=== PATIENT | female | born 1975 | race Caucasian/White ===

== ENCOUNTER → 2017-03-18 | Outpatient (CLI) | payer OTHER ==
[2014-01-19 11:32] VITALS: BP 119/83
[~2017-03-18] MED LIST: ADDERALL30 MG PO; WELLBUTRIN XL300 M1 PO
== END ==
LOC: RAD 14:47
DX: M25.571 Pain in right ankle and joints of right foot (principal)

== ENCOUNTER 2017-08-20 09:07 | Emergency (ER) | payer OTHER ==
[~2017-08-20] VITALS: Ht 175.3 cm; Wt 81.8 kg
[2017-08-20 10:10] LABS: HEMATOCRIT 41.7 % (37.0-47.0); HEMOGLOBIN 14.1 g/dL (12.5-16.0); LYMPH# 1.1 (1.50-4.00); MEAN CELL VOLUME 90 fl (78-100); MEAN CORPUSCULAR HEMOGLOBIN 30 pg (27-31); MEAN CORPUSCULAR HGB CONC 34 g/dL (33-37); MEAN PLATELET VOLUME 10.9 fl (7.4-10.4); MONO # 0.4 (0.20-0.80); NEU # 3.7 (1.40-6.50); PLATELET COUNT 211 K/mm3 (130-400); RED BLOOD COUNT 4.66 M/mm3 (4.10-5.30); RED CELL DISTRIBUTION WIDTH 12.7 % (11.5-14.5); WHITE BLOOD COUNT 5.3 K/mm3 (4.8-10.8)
[2017-08-20 10:25] LABS: PH-URINE 5.5 (5.0 - 8.0); URINE APPEARANCE HAZY; URINE COLOR YELLOW
[2017-08-20 10:26] LABS: URINE BILIRUBIN NEGATIVE (NEGATIVE); URINE BLOOD NEGATIVE (NEGATIVE); URINE GLUCOSE NEGATIVE (NEGATIVE); URINE KETONE NEGATIVE (NEGATIVE); URINE LEUKOCYTE ESTERASE NEGATIVE (NEGATIVE); URINE NITRATE NEGATIVE (NEGATIVE); URINE PROTEIN(semi-quant) NEGATIVE (NEGATIVE); URINE UROBILINOGEN NORMAL (NORMAL)
[2017-08-20 11:05] LABS: ERYTHROCYTE SEDIMENTATION RATE 2 mm/hr (0-20)
[2017-08-20] MEDS ORDERED: PREDNISONE20 M1 PO (11:42)
[2017-08-20 12:00] VITALS: BP 128/75
== END 2017-08-20 12:00 | disposition home or self-care (01) ==
LOC: ED 09:07
PROVIDERS: Family Medicine
DX: L50.9 Urticaria, unspecified (principal)

== ENCOUNTER → 2018-07-04 | Outpatient (CLI) | payer BC ==
[~2018-07-04] MED LIST changes: +PREDNISONE20 M1 PO
== END ==
LOC: CARDLAB 09:04 → CARDREHAB 15:49
DX: R00.2 Palpitations (principal)

== ENCOUNTER → 2018-08-07 | Outpatient (CLI) | payer BC | LOC: RAD 13:00 | DX: M25.571 Pain in right ankle and joints of right foot (principal); M79.671 Pain in right foot ==

== ENCOUNTER → 2019-11-13 | Outpatient (CLI) | payer BC ==
[2019-11-13 10:04] LABS: EOS # 0.2 (0.04-0.40); EOS % 4.4 % (1.0-5.0); HEMATOCRIT 43.8 % (37.0-47.0); HEMOGLOBIN 14.4 g/dL (12.5-16.0); LYMPH# 1.6 (1.50-4.00); MEAN CELL VOLUME 95 fl (78-100); MEAN CORPUSCULAR HEMOGLOBIN 31 pg (27-31); MEAN CORPUSCULAR HGB CONC 33 g/dL (33-37); MEAN PLATELET VOLUME 10.4 fl (7.4-10.4); MONO # 0.5 (0.20-0.80); NEU # 2.2 (1.40-6.50); PLATELET COUNT 221 K/mm3 (130-400); RED BLOOD COUNT 4.61 M/mm3 (4.10-5.30); WHITE BLOOD COUNT 4.6 K/mm3 (4.8-10.8)
[2019-11-13 10:15] LABS: ALBUMIN 4.3 g/dL (3.5-5.0); POTASSIUM 5.1 mmol/L (3.5-5.1)
[2019-11-13 10:16] LABS: CALCIUM 9.4 mg/dL (8.3-10.5)
[2019-11-13 10:18] LABS: TOTAL PROTEIN 7.6 g/dL (6.4-8.3)
[2019-11-13 10:20] LABS: TOTAL BILIRUBIN 0.7 mg/dL (0.2-1.2)
== END ==
LOC: LAB 09:51
PROVIDERS: Family Medicine
DX: Z00.00 Encounter for general adult medical examination without abnormal findings (principal); E78.5 Hyperlipidemia, unspecified

== ENCOUNTER → 2021-09-11 | Outpatient (CLI) | payer BC | LOC: RAD 11:14 | DX: M79.672 Pain in left foot (principal) ==

== ENCOUNTER → 2023-02-10 | Outpatient (CLI) | payer BC | LOC: MAMMO 13:13 | DX: N63.15 Unspecified lump in the right breast, overlapping quadrants (principal) ==